=== PATIENT | female | born 1975 | race Two or more races ===

== ENCOUNTER → 2016-12-03 | Outpatient (CLI) | payer OTHER | END | disposition home or self-care (01) | LOC: LAB 09:00 | PROVIDERS: ATTEND Podiatrist Foot & Ankle Surgery | DX: M67.271 Synovial hypertrophy, not elsewhere classified, right ankle and foot (principal) ==

== ENCOUNTER 2017-11-01 06:31 | Day surgery (SDC) | payer OTHER ==
[~2017-11-01] VITALS: Ht 165.1 cm; Wt 86.2 kg
[2017-11-01 13:46] LABS: Basophils # (auto) 0.1 uL; Basophils % (auto) 0.7 % (0.0-2.0); Eosinophils # (auto) 0.2 uL; Eosinophils % (auto) 2.2 % (0.0-7.0); Hematocrit 42.6 % (36.0-46.0); Hemoglobin 14.9 g/dL (12.2-16.2); Lymphocytes # (auto) 2.1 uL; Lymphocytes % (auto) 27.2 % (10.0-50.0); Mean Corpuscular Hemoglobin 30.8 pg (28.0-32.0); Mean Corpuscular Hgb Conc. 34.9 g/dL (32.0-36.0); Mean Corpuscular Volume 88.1 fL (80.0-100.0); Monocytes # (auto) 0.7 uL; Monocytes % (auto) 8.7 % (0.0-12.0); Neutrophils # (auto) 4.8 uL; Neutrophils % (auto) 61.2 % (37.0-80.0); Platelet Count (auto) 215 10^3/uL (140-450); Red Blood Cells 4.83 10^6/uL (4.0-5.20); White Blood Cell 7.8 10^3/uL (4.4-10.8)
[2017-11-01] MEDS ORDERED: ceFAZolin 1GM/50ML 50 ML IV ONE (13:48)
[2017-11-01 14:01] LABS: INR 0.95 (0.9-1.15); Partial Thromboplastin Time 26.2 sec (22.64-33.71); Prothrombin Time 10.3 sec (9.37-12.3)
[2017-11-01 14:07] LABS: BUN/Creatinine Ratio 27.6; Calcium 8.4 mg/dL (8.5-10.1); Potassium 3.7 mmol/L (3.5-5.1)
[2017-11-01] MEDS ORDERED: BUPIVACAINE 0.75% INJ 10ML MPV SDV IJ ONE (15:56)
[2017-11-01] MEDS ORDERED: methylPREDNISolone ACETATE 80 MG/ML VL ONE (15:56)
[2017-11-01] MEDS ORDERED: ROPIVACAINE 0.5% (5MG/ML) 20ML AMPULE IJ ONE (15:56)
[2017-11-01] MEDS ORDERED: fentaNYL CITRATE 100 MCG/2 ML VL ONE (16:16)
[2017-11-01] MEDS ORDERED: PROPOFOL 10 MG/ML 20 ML IV ONE (16:16)
[2017-11-01] MEDS ORDERED: MIDAZOLAM HCL 1MG/1ML-2 ML VIAL ONE (16:16)
[2017-11-01] MEDS ORDERED: ePHEDrine SULFATE 50 MG/ML AMP IV PRN (17:15)
[2017-11-01] MEDS ORDERED: ONDANSETRON HCL 4 MG/2 ML VIAL IV ONE (17:15)
[2017-11-01] MEDS ORDERED: HYDROmorphone HCL 2 MG/ML VL IV PRN (17:15)
[2017-11-01] MEDS ORDERED: hydrALAZINE HCL 20 MG/ML VL IV PRN (17:15)
[2017-11-01 18:03] VITALS: BP 116/81
== END 2017-11-01 18:03 | disposition home or self-care (01) ==
LOC: SUR 06:31
PROVIDERS: ATTEND Podiatrist Foot & Ankle Surgery
DX: M72.2 Plantar fascial fibromatosis (principal); D69.6 Thrombocytopenia, unspecified; Z90.49 Acquired absence of other specified parts of digestive tract; E66.9 Obesity, unspecified; Z68.31 Body mass index [BMI] 31.0-31.9, adult
CPT/HCPCS: 29893; 36415; 80048; 84702; 85025; 85610; 85730; J0690; J1040; J2250; J2704; J2795; J3010; J3490